=== PATIENT | male | born 1965 | race Caucasian/White ===

== ENCOUNTER 2024-01-09 10:19 | Emergency (ER) | payer BC, OTHER ==
[2024-01-09 11:01] LABS: Absolute Eosinophils 0.1 K/uL (0-0.5); Absolute Lymphocytes (CBC) 2.3 K/uL (0.7-4.9); Absolute Monocytes 0.4 K/uL (0.1-1.3); Basophils % 0.7 % (0-1.3); Eosinophils % 2.3 % (0-4.4); Hematocrit 43.4 % (39.6-49.0); Hemoglobin 14.3 g/dL (13.6-17.9); Lymphocytes % 48.5 % (15.3-44.8); MCH 29.8 pg (27.0-35.0); MCHC 32.9 g/dL (32.0-36.0); MCV 90.8 fL (80-100); MPV 6.3 fL (7.6-11.3); Monocytes % 7.8 % (3.3-12.3); Neutrophils % 40.7 % (41.7-73.7); Nucleated Red Blood Cells % 0.1 % (0-0); Platelets 186 thou/uL (152-406); RBC Red Blood Cell Count 4.78 M/uL (4.33-5.43); Red Cell Distribution Width 13.6 % (12.1-15.2)
[2024-01-09 11:10] LABS: PT Prothrombin Time 11.8 SECONDS (9.4-12.5); PTT, Activated Partial Thromb 31.6 SECONDS (24.3-36.9); Protime INR 1.06
--- NOTE | 2024-01-09 11:10 | RAD REPORT ---
EXAM DESCRIPTION: Adry Single View01/09/2024 10:56 am CLINICAL HISTORY: syncop COMPARISON: Chest Pa And Lat (2 Views) dated 12/06/2016 TECHNIQUE: Portable AP view of the chest. FINDINGS: The lungs are clear. No pneumothorax or effusion. The cardiomediastinal contours are unre markable. IMPRESSION: No acute cardiopulmonary process.
[2024-01-09 11:21] LABS: ALT/SGPT 25 U/L (16-61); AST/SGOT 15 U/L (15-37); Albumin/Globulin Ratio 1.3 (1.1-1.8); Alkaline Phosphatase 50 U/L (45-117); BUN Blood Urea Nitrogen 18 mg/dL (7-18); Bicarbonate 27 mEq/L (21-32); Bilirubin Total 0.4 mg/dL (0.2-1.0); Glomerular Filtration Rate 92 ml/min (=/>90); Glucose Level 97 mg/dL (74-106); Magnesium 2.2 mg/dL (1.6-2.4); Sodium Level 138 mEq/L (136-145); Troponin High Sensitivity 6.4 pg/mL (<58.9)
[2024-01-09 11:26] LABS: Bilirubin Direct < 0.2 mg/dL (0-0.2); Bilirubin Indirect, Calculated 0.2 mg/dL (0.2-0.8)
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
[2024-01-09 12:17] VITALS: TEMP 98.2
[2024-01-09 12:21] VITALS: BP 112/85; O2SAT 98
--- OUTSIDE RECORDS SUMMARY | 2024-01-10 13:53 | XMS REPORT | Continuity of Care Document ---
Author Name Unknown Address [address] [facility] [address] [id number] [facility] thconnect Address [address] [facility] [address] [place] [address] Care Team Providers Care Marine Superintendent Name Role Phone Elvin Neumann Attending Clinician Unavailable Encounters Start Date/Time End Date/Time Encounter Type Admission Type Attending Clinicians Care Facility Care Department Encounter ID Source 2023-01-25 07:45:00 Outpatient Elvin Neumann [facility] [id number] [facility] 2022-10-22 11:07:01 Outpatient Elvin Neumann [facility] [id number] [facility] 2022-04-22 11:43:01 Outpatient Elvin Neumann [facility] [id number] [facility] 2021-12-28 10:46:02 Outpatient Elvin Neumann [facility] [id number] [facility]
--- NOTE | 2024-01-10 17:48 | EKG ---
Test Date: 2024-01-09 Test Time: 11:09:11 Clock Repairer: SAGE MEASUREMENT RESULTS: Intervals: Rate: 58 [place]: 178 QRSD: 90 QT: 374 QTc: 367 [place]: P: 35 [place]: 178 QRS: 33 T: 56 INTERPRETIVE STATEMENTS: Sinus bradycardia Otherwise normal ECG No previous ECG available for comparison Electronically Signed On 01-10-24 17:45:47 CDT by Bjorn Frias
== END 2024-01-09 12:03 | disposition home or self-care (01) ==
LOC: ER 10:19
DX: G90.01 Carotid sinus syncope (principal); E78.00 Pure hypercholesterolemia, unspecified; Z85.46 Personal history of malignant neoplasm of prostate
CPT/HCPCS: 36415; 71045; 80048; 80076; 83735; 84484; 85025; 85610; 85730; 93005